=== PATIENT | female | born 1995 | race Two or more races ===

== ENCOUNTER → 2017-02-08 | Outpatient (CLI) | payer OTHER ==
[~2017-02-08] MED LIST: SEROQUEL; XANAX; [UNRECOGNIZED DRUG - REMARK]
--- NOTE | 2017-02-08 16:28 | RADRPT ---
PROCEDURE: XR Knee. CLINICAL INDICATION: Pain TECHNIQUE: AP , oblique, sunrise and lateral views of the right knee were obtained. The images re viewed on a PACS workstation. COMPARISON: None. FINDINGS: Mild to views of the right knee demonstrate no displaced fracture. No gross malalignment is seen. There is no patellofemoral disease. No knee joint effusion is identified. Bones are normally shot examiner alized. The soft tissues are unremarkable. IMPRESSION: 1. No acute fracture dislocation. 2. No significant degenerate change. 3. There is a 3 mm radiopaque foreign body embedded within the patellar tendon with slight edema. RPTAT: HH .Juan Pablo Viera MD, Date Time Electronically viewed and signed by .Juan Pablo Viera MD, MD on 02/08/2017 16:28 .W/
--- NOTE | 2017-02-08 21:16 | HKNOTE ---
DATE OF SERVICE: 02/08/2017 CHIEF COMPLAINT: Right knee mass. HISTORY OF PRESENT ILLNESS: This is a 22-year-old female who states that she fell on her right knee several years ago while intoxicated. She has had a small mass over her right knee. There is no as sociated pain. She denies any locking, catching or instability. She has seen an orthopedic surgeon previously, who advised her not to have surgery. She is here today for a second opinion. RIGHT KNEE EXAMINATION: There is a small cyst over the tibial tuberosity. It is nontender to palpa tion. She has 0 to 120 degrees range of motion. Stable to varus and valgus stress. Negative Lachm an, negative anterior drawer and negative Chaya's. IMPRESSION: A 22-year-old female with a right knee cyst. PLAN: I discussed treatment options with the patient. I explained to her that given the small size of the cyst and the fact that it is nonpainful, I recommend continuation of conservative treatment. The patient would like to have surgery. She would like to obtain a second opinion and we will req uest authorization for an orthopedic surgeon to evaluate her outside of the practice. She can follo w up with me as needed. Dictated By: JACINDA ERIC/KYLE Conf#: [id number] DID#: [id number]
== END | disposition home or self-care (01) ==
LOC: HKI 15:20
PROVIDERS: ATTEND Orthopaedic Surgery Adult Reconstructive Orthopaedic Surgery
DX: M25.861 Other specified joint disorders, right knee (principal)
CPT/HCPCS: 73564; Z7500; G0463

== ENCOUNTER 2017-04-20 11:50 | Day surgery (SDC) | END 2017-04-20 18:00 | disposition home or self-care (01) ==